=== PATIENT | female | born 1995 | race Caucasian/White ===

== ENCOUNTER 2022-02-03 06:55 | Inpatient (IN) | payer MEDICAID, SELFPAY ==
[2022-02-03] VITALS (35 sets, daily range): BP systolic 111–162; BP diastolic 56–116; PULSE 76–157; RESP 18; TEMP 36.7–37.7; O2SAT 18–100; BMI 42.7
[2022-02-03] MEDS: Lactated Ringers 1,000 ML 50 ML IV (07:45)
[2022-02-03 07:57] LABS: Absolute Lymphocyte Count 2.71 X10^3/uL (0.83-4.51); Absolute Neutrophil Count 6.6 X10^3/uL (2.0-7.7); Basophil# 0.04 X10^3/uL; Basophil% 0.4 % (0-1); Eosinophil# 0.12 X10^3/uL; Eosinophils% 1.1 % (0-5); Hematocrit 35.3 % (37-47); Hemoglobin 11.4 g/dL (12.0-15.0); Lymphocyte # 2.71 X10^3/ul (0.83-4.51); Lymphocyte % 24.4 % (19-41); Mean Corp Hgb Conc 32.3 g/dL (32-36); Mean Corpuscular Hgb 29.8 pg (27.0-32.0); Mean Corpuscular Volume 92.2 fL (81-99); Mean Platelet Vol. 10.8 fl (6.2-12.0); Monocyte# 1.51 X10^3/uL; Monocyte% 13.6 % (0-10); NRBC Flagged by Analyzer 0 % (0-5); Neutrophil # 6.63 X10^3/uL (2.7-7.7); Neutrophil % 59.8 % (47-70); POSITIVE DIFFERENTIAL YES; Platelet Count 231 K/mm3 (150-450); RBC Distribution Width CV 14.5 % (11.6-14.6); RBC Distribution Width SD 48.3 fl (35.1-43.9); Red Blood Count 3.83 M/mm3 (4.2-5.4); White Blood Count 11.1 K/mm3 (4.4-11.0)
[2022-02-03 08:00] LABS: Differential Indicated SCAN CRITERIA MET
[2022-02-03] MEDS: Oxytocin 30 units/NS 500 ml 30 UNITS/500 ML IV.SOLN IV (08:27)
[2022-02-03] MEDS: 0.9% Normal Saline Single 100 ML IV.SOLN. INTRA-UTER (08:28)
[2022-02-03 08:34] LABS: Platelet Estimate ADEQUATE (ADEQ); Red Cell Morphology NORM C+C NORMAL (NORM C&C)
--- NOTE | 2022-02-03 11:01 | PCM.HP.OB ---
HPI - General General Date of Admission: 02/03/22 Date of Service: 02/03/22 Chief Complaint: induction of labor HPI Narrative GEORGES LEMOS, is a 27 F E YESI of 02[birth year] who presents for induction of labor at 39 4/7 weeks for BMI 42. She has not had any vaginal bleeidng, LOF or regular ctxs. was uncomplicated. Past history is significant for PCOS, depression. She had an abnormal 1 hr gtt but normal 3 hr. She had a low risk sequential screen and negative hemaglobanopathy screen. one previous vaginal delivery of 6lb 8 oz infant at 37 weeks without complication Maternal Data Information Final YESI: 02/06/22 Gestational age: 39 4/7 PFSH PFSH Medical History (Updated 02/03/22 @ 11:[address] Bella Wheeler MD) Anxiety MRSA infection depression Home Medications B-complex with vitamin C [B-Vitamins W/C] cap 02/03/22 [History Last Taken Unknown] 02/03/22 [History Last Taken Unknown] loratadine [Claritin] mg 02/03/22 [History Last Taken Unknown] metformin mg PO 02/03/22 [History Last Taken Unknown] Allergy/AdvReac Type Severity Reaction Status Date / Time escitalopram [From Lexapro] AdvReac Other Verified 02/03/22 07:49 Surgical History (Updated 02/03/22 @ 08:13 by Kerrie Camara) History of surgery Social History Smoking Status: Never smoker History Elective abortions Hx Para 1 Spontaneous abortions Hx # Term Pregnancies Ectopic pregnancies Hx # Pregnancies Multiple births # of living children ROS Constitutional Constitutional: Denies fatigue, fever(s) or malaise Eyes Eyes: Denies change in vision ENT HEENT: Denies dizziness or headache(s) Cardiovascular Cardiovascular: Denies chest pain, dyspnea or lightheadedness Respiratory/Chest Respiratory/Chest: Denies cough or dyspnea Gastrointestinal Gastrointestinal: Denies change in bowel habits Genitourinary Genitourinary: Denies burning urination or genital lesions Integumentary Integumentary: Denies rash Neurologic Neurologic: Denies confusion, dizziness, headache(s), numbness or weakness Vital Signs Vital Signs Vital Signs: 02/03/22 08:09 02/03/22 08:14 02/03/22 09:30 Temperature 98.0 F Temperature Source Temporal Pulse Rate 94 101 H Blood Pressure 124/82 H 131/77 H BP Systolic 124 131 BP Diastolic 82 77 Pulse Ox 98 02/03/22 10:22 Temperature Temperature Source Pulse Rate 82 Blood Pressure 127/78 H BP Systolic 127 BP Diastolic 78 Pulse Ox Weight Weight: 102.693 kg Body Mass Index (BMI) 42.7 Physical Exam Const alert and no apparent distress General Appearance: cooperative HEENT normocephalic Resp normal respiratory effort Cardio regular rate GI soft to palpation GI Narrative: gravid, nontender, appropriate for gestational age Extremity no calf tenderness General Extremity: edema Skin no wounds Rashes: No rashes noted Psych activity/motor behavior normal Labs Labs Labs: Blood Type A POSITIVE Antibody Screen NEGATIVE Hct 35.3 % (37-47) L Hgb 11.4 g/dL (12.0-15.0) L Assessment & Plan (1) 39 weeks gestation of : PLAN: R/B/A/P to mcgowan/pit/arom induction reviewed. Her questions were answered. She desired to proceed. May use NO prn anxiety. Epidural prn Mcgowan placed over stylette into the cervix in the usual sterile fashion without difficulty and bulb inflated to 30 cc. Placement over internal os confirmed. (2) High risk multigravida in third trimester: (3) Maternal obesity syndrome in third trimester: (4) BMI 40.0-44.9, adult: (5) Anxiety:
--- NOTE | 2022-02-03 12:07 | PN_ITS ---
Progress Note AROM performed -/-2 Clear fluid
--- NOTE | 2022-02-03 12:07 | PCM.PN.BLA ---
Progress Note AROM performed -/-2 Clear fluid
[2022-02-03] MEDS: Lactated Ringers 500 ML 999 ML IV (12:40)
[2022-02-03] MEDS: fentaNYL-bupivacaine (epidural) 100 ML BAG EPIDURAL (14:45)
[2022-02-03] MEDS: Ondansetron 4 MG/2 ML Vial IV (16:13)
[2022-02-03] MEDS: 0.9% Saline Lock 10 ML Syringe IV (16:13)
[2022-02-03] MEDS: Lactated Ringers 1,000 ML 200 ML IV (16:15)
[2022-02-03] MEDS: Oxytocin 30 units/NS 500 ml 30 UNITS/500 ML IV.SOLN 334 UNITS IV (19:16)
--- NOTE | 2022-02-03 19:28 | OP.PCM_ITS ---
Assessment & Plan (1) (spontaneous vaginal delivery): Maternal Data Information Final YESI: 02/06/22 Gestational age: 39 4/7 Vaginal Delivery Maternal Presentation Maternal Presentation: Medically Indicated Induction Type of Induction: Pitocin, Yost Bulb and Amniotomy Operative Information Date of Procedure: 02/03/22 Pre-Operative Diagnosis: labor Post-Operative Diagnosis: same Surgery / Procedure Performed: Spontaneous Vaginal Delivery Type of Anesthesia: Epidural Special Medications: none Drain: Yost to straight drain Estimated Blood Loss: 300 Time of Delivery: 19:14 Findings Description of Procedure: A vigorous male was delivered JAX over a seco nd-degree perineal laceration. The remainder the infant was delivered with maternal pushing and gentle traction only in less than 15 seconds. The Pitocin infusion was initiated for active management of the third stage. The cord was clamped and cut after 1 minute. The infant was attended to by the waiting nursing staff. The placenta was delivered spontaneously and intact. The cervix and vagina were intact. The second-degree perineal laceration was repaired with 3-0 Vicryl suture in a running standard fashion. Sponge and needle counts were correct. A vaginal sweep was completed by me. Presentation: JAX Amniotic Membrane Rupture Type: Artificial Amniotic Fluid Description: Clear Placental Delivery Description: Spontaneous Placenta Disposition: [facility] Cord Vessel Description: 3 Vessels Cord Entanglement: None Infant A Gender: Male (1 minute): 8 (5 minute): 9 Delayed Cord Clamping: Yes Post Vaginal Delivery Medications Given After Delivery: IV Pitocin Episiotomy Description: None Laceration: 2nd degree Complication Complications: None Admit VTE Documentation VTE Present on Admission: No VTE Pharm Prophylaxis Ordered: No Reason Prophylaxis Not Ordered: Procedure Not Indicated
[2022-02-03] MEDS: Acetaminophen 500 MG Tablet 1000 MG PO (23:46)
[2022-02-04] VITALS (9 sets, daily range): BP systolic 111–128; BP diastolic 55–75; PULSE 67–248; RESP 16–18; TEMP 36.1–36.5; O2SAT 82–98
[2022-02-04] MEDS: Naproxen 500 MG Tablet PO ×2 (03:59→12:45)
--- NOTE | 2022-02-04 08:13 | PCM.PN.OB ---
Subjective Subjective Patient seen at bedside. Feeling good. Denies any pain. Ambulating and voiding without difficulty. Breast feeding without difficulty. Desires discharge home today. Objective Data Objective Data Vital Signs: Vital Signs Temp Pulse Resp BP Pulse Ox 98.2 F 86 18 118/71 18 02/03/22 23:24 02/04/22 03:27 02/04/22 03:27 02/04/22 03:27 02/03/22 23:24 Oxygen Delivery Method Room Air Weight: 226 lb 6.4 oz Body Mass Index (BMI) 42.7 Intake & Output: Intake and Output for Last 24 Hours 02/02/22 02/03/22 02/04/22 23:59 23:59 23:59 Intake Total 2647.07 / 2647.07 Output Total 1250 / 1250 500 / 500 Balance 1397.07 / 1397.07 -500 / -500 Lab / Micro Data Result Diagrams: 02/03/22 07:35 Labs: Laboratory Results - last 24 hr 02/03/22 07:35: Differential Comment , Diff Path Review May foll, Platelet Estimate ADEQUATE, RBC Morphology NORM C+C 02/03/22 08:00: Blood Type A POSITIVE, Antibody Screen NEGATIVE Micro: Microbiology 02/03/22 07:45 Nasal Secretion SARS-CoV-2 Antigen (Rapid) - Final ROS Eyes Eyes: Denies blurry vision, change in vision or spots in vision ENT HEENT: Denies dizziness or headache(s) Cardiovascular Cardiovascular: Denies abdominal pain, chest pain or dyspnea Respiratory/Chest Respiratory/Chest: Denies cough, dyspnea, shortness of breath at rest or shortness of breath with exertion Gastrointestinal Gastrointestinal: Denies abdominal pain, diarrhea or vomiting Genitourinary Genitourinary: Denies change in urinary stream, difficulty urinating or dysuria Musculoskeletal Musculoskeletal: Reports none Integumentary Integumentary: Denies rash Neurologic Neurologic: Denies dizziness, headache(s), memory loss or weakness Physical Exam Const alert and no apparent distress General Appearance: cooperative and comfortable Exam Limitations: no limitations HEENT normocephalic Eyes General Eye: normal appearance of both eyes Neck full ROM General: normal visual inspection Chest Chest: symmetrical chest wall rise Resp normal respiratory effort and normal air movement Effort and Inspection: symmetric chest movement Auscultation: clear to auscultation bilaterally Cardio regular rate and regular rhythm GI normal to inspection, nondistended, normoactive bowel sounds Back/Spine normal ROM Extremity full ROM and no calf tenderness General Extremity: normal exam except as noted Skin no rashes or lesions noted Neuro CN's II-XII intact bilaterally Psych mental status grossly normal Assessment & Plan (1) (spontaneous vaginal delivery): (2) Care and examination of lactating mother:
--- NOTE | 2022-02-04 08:17 | PCM.DC ---
Discharge Instructions Diet Discharge Diet: No restrictions Activity May resume sexual activity in: 6-8 weeks Weight Bearing Status: Weight bearing as tolerated Dressing / Incision Call your doctor if you observe: Fever of 101 or Higher, Inability to urinate, Using more than 1 pad per hour, Shortness of breath, Chest pain, Calf discomfort and Uncontrolled pain Follow Up Care When: 2 weeks virtual visit/ 6 weeks in office Test Results: Test results from this visit will be discussed in further detail at your follow-up appointment, if applicable. Discharge Plan Admission Admit Date/Time: 02/03/22 06:55 Primary Reason for Your Visit: Labor and Delivery Attending Provider: Bella Wheeler Primary Care Provider: Josse Sims Discharge Orders/Prescriptions Prescriptions: Continued metformin 500 mg tablet extended release 24 hr PO RF: 0 RF: 0 Discontinued loratadine [Claritin] 10 mg Tablet RF: 0 B-complex with vitamin C [B-Vitamins W/C] Capsule RF: 0 Referrals / Follow Up: Josse Sims MD [Primary Care Provider] - Disposition Disposition (needs filled in before D/C Order can be placed): Home, Self Care
[2022-02-04] MEDS: Acetaminophen 500 MG Tablet 1000 MG PO (08:43)
[2022-02-05 09:23] LABS: Pathologist Review Reviewed
== END 2022-02-04 21:51 | disposition home or self-care (01) | DRG 560 ==
PROVIDERS: Admitting Provider Obstetrics & Gynecology; PCP Family Medicine; Referring Provider Obstetrics & Gynecology; Visit Provider Obstetrics & Gynecology
DX: O99.214 Obesity complicating childbirth (principal); Z37.0 Single live birth; O70.1 Second degree perineal laceration during delivery; Z3A.39 39 weeks gestation of pregnancy
CPT/HCPCS: 59025; 59050; 85025; 86850; 86900; 86901; 87426; 99218; J7120; A4216; G0378; J2405